=== PATIENT | male | born 1995 | race African-American/Black ===

== ENCOUNTER 2019-03-24 22:53 | Emergency (ER) | payer OTHER ==
[~2019-03-24] VITALS: Ht 157.5 cm; Wt 51.4 kg
[2019-03-24 23:01] VITALS: BP 135/78; TEMP 99.8
[2019-03-24] MEDS ORDERED: LEXAPRO20 MG PO (23:21)
[2019-03-24] MEDS ORDERED: BUSPAR5 MG PO (23:21)
[2019-03-25 00:07] VITALS: PULSE 104
== END 2019-03-25 00:07 | disposition home or self-care (01) ==
LOC: COL.ER 22:53
DX: S29.9XXA Unspecified injury of thorax, initial encounter (principal); R40.2412 Glasgow coma scale score 13-15, at arrival to emergency department; Z87.891 Personal history of nicotine dependence; V43.62XA Car passenger injured in collision with other type car in traffic accident, initial encounter